=== PATIENT | female | born 2000 | race Caucasian/White ===

== ENCOUNTER 2022-06-25 08:13 | Outpatient (CLI) | payer BC, SELFPAY ==
[2022-06-25 13:30] LABS: Chloride* 102 mmol/L (96-114)
[2022-06-25 13:31] LABS: Albumin* 4.5 g/dL (3.3-5.0); Potassium* 4.2 mmol/L (3.6-5.1); Sodium* 138 mmol/L (135-149)
[2022-06-25 13:34] LABS: Alanine Aminotransferase* 18 U/L (4-35); Alkaline Phosphatase* 68 U/L (40-150); Aspartate Amino Transferase* 24 U/L (12-35); Bilirubin Total* 0.3 mg/dL (0.1-1.5); Blood Urea Nitrogen* 12 mg/dL (5-24); Carbon Dioxide* 27 mmol/L (20-32); Creatinine* 0.7 mg/dL (0.5-1.5); Estimated Glomerular Filt Rate 125 ml/min; Glucose* 92 mg/dL (60-115); Total Protein* 7.8 g/dL (6.0-8.3)
[2022-06-25 13:35] LABS: Calcium* 9.3 mg/dL (8.4-10.6)
[2022-06-26 15:53] LABS: HSV Type 1/2 Combined Ab, IgG 1.02 IV
== END 2022-06-25 08:14 | disposition home or self-care (01) ==
PROVIDERS: PCP Family Medicine; Visit Provider Family Medicine
DX: R30.0 Dysuria (principal); N39.0 Urinary tract infection, site not specified; R10.2 Pelvic and perineal pain; R10.9 Unspecified abdominal pain
CPT/HCPCS: 80053; 86694

== ENCOUNTER 2022-09-09 11:43 | Outpatient (CLI) | payer BC, SELFPAY ==
[2022-09-09 14:02] LABS: Chlamydia DNA Amplified* NOT DETECTED (No Detected); GC DNA Amplified* NOT DETECTED (No Detected)
== END 2022-09-09 11:44 | disposition home or self-care (01) ==
PROVIDERS: PCP Family Medicine; Visit Provider Obstetrics & Gynecology
DX: R10.2 Pelvic and perineal pain (principal); N39.0 Urinary tract infection, site not specified
CPT/HCPCS: 87109; 87491; 87591

== ENCOUNTER 2022-09-30 11:16 | Outpatient (CLI) | payer BC, SELFPAY ==
--- NOTE | 2022-09-30 11:00 | CRLHL7_ITS ---
For Patients: As a result of the Century Cures Act, medical imaging exams and procedure reports are released immediately into your electronic medical record. You may view this report before your referring provider. If you have questions, please contact your health care provider. CLINICAL HISTORY: Pelvic Pain Comparison: 08/18/2019 TECHNIQUE: 2D liang scale ultrasound. In addition color Doppler and spectral Doppler analysis was performed of the pelvis using a transvaginal and transabdominal approach. FINDINGS: On transvaginal imaging, the myometrium has a normal uniform echotexture. The uterus measures 5.9 x 3.3 x 3.4 cm the endometrial lining appears normal and measures 7 mm in thickness. The right ovary measures 3.0 x 2.3 x 2.2 cm in size and the right ovary measures 3.6 x 2.8 x 2.3 cm. The ovaries demonstrate normal arterial and venous blood flow on color Doppler and spectral Doppler analysis. Multiple small ovarian follicles are present bilaterally. There are no suspicious fluid collections within the cul-de-sac. Trace physiologic free fluid noted. IMPRESSION: Normal pelvic ultrasound. Ovarian volumes are considered normal. No evidence of ovarian torsion or adnexal mass. Dictated by Delgado Malin MD @ 09/30/2022 12:40:10 PM (Electronically Signed)
== END 2022-09-30 11:17 | disposition home or self-care (01) ==
PROVIDERS: PCP Family Medicine; Visit Provider Obstetrics & Gynecology
DX: R10.2 Pelvic and perineal pain (principal)
CPT/HCPCS: 76830; 76856; 93976

== ENCOUNTER 2024-03-10 08:23 | Outpatient (CLI) | payer BC, SELFPAY | END 2024-03-10 08:24 | disposition home or self-care (01) | LOC: FRMREF 08:26 | PROVIDERS: PCP Physician Assistant Medical; Visit Provider Physician Assistant Medical | DX: Z13.220 Encounter for screening for lipoid disorders (principal) | CPT/HCPCS: 80061 ==